=== PATIENT | female | born 1960 | race Two or more races ===

== ENCOUNTER 2025-03-13 11:52 | Emergency (ER) | payer MEDICARE, OTHER ==
[~2025-03-13] VITALS: Ht 160 cm; Wt 70.0 kg
[2025-03-13 11:59] VITALS: O2SAT 95
[2025-03-13 12:34] LABS: BASOPHILS % 0.4 % (0.0-2.0); EOSINOPHILS % 1.2 % (0.0-5.0); HEMATOCRIT. 34.7 % (36.0-48.0); HEMOGLOBIN. 11.7 g/dL (12.0-16.0); LYMPHOCYTES % 20.4 % (20.0-50.0); MEAN PLATELET VOLUME 7.4 fl (7.4-10.4); MONOCYTES % 6.1 % (2.0-8.0); NEUTROPHILS % 71.9 % (40.0-76.0); PLATELET 346 x1000/uL (130-400); RED BLOOD CELL COUNT 3.91 mill/uL (4.2-5.4); RED CELL DISTRIBUTION WIDTH 14.4 % (11.6-14.6)
[2025-03-13 12:49] LABS: CREATININE 0.9 mg/dL (0.6-1.0)
[2025-03-13 12:50] LABS: TROPONIN I HIGH SENSITIVITY < 4 ng/L (3.0-34); UREA NITROGEN BLOOD 14 mg/dL (9-23)
[2025-03-13 12:51] LABS: ASPARTATE AMINOTRANSFERASE 15 IU/L (<34)
[2025-03-13 12:52] LABS: BILIRUBIN DIRECT < 0.1 mg/dL (<=3.0); BILIRUBIN TOTAL 0.4 mg/dL (0.1-1.0); PROTEIN TOTAL 7.6 g/dL (6.0-8.3)
[2025-03-13 13:28] LABS: CLARITY URINE CLOUDY (CLEAR); COLOR URINE YELLOW (YELLOW); GLUCOSE URINE NEGATIVE (NEGATIVE); KETONES URINE TRACE (NEGATIVE); LEUKOCYTE ESTERASE URINE 2+ (NEGATIVE); NITRITE URINE NEGATIVE (NEGATIVE); OCCULT BLOOD URINE 1+ (NEGATIVE); PH URINE 5.5 (4.5-8.0); PROTEIN URINE 1+ (NEGATIVE); SPECIFIC GRAVITY URINE 1.027 (1.005-1.030); UROBILINOGEN URINE 1.0 E.U./dL (0.2-1.0)
[2025-03-13 14:05] LABS: BACTERIA URINE 1+; SQUAMOUS EPITHELIAL CELL URINE 1+ /lpf (RARE/1+); WBC URINE TNTC /hpf (0-2); YEAST URINE NONE SEEN
[2025-03-13] MEDS: SODIUM CHLORIDE 0.9% 1,000 ML IV ONE (14:37)
[2025-03-13] MEDS: CEFTRIAXONE 1GM/50ML 50 ML IV NR (14:44)
[2025-03-13] MEDS: KETOROLAC 15MG/ML VIAL IV NR (15:14)
[2025-03-13] MEDS ORDERED: CEPH500C2 MT (16:10)
[2025-03-13] MEDS ORDERED: DOCU-138 MT (16:10)
[2025-03-13 16:29] LABS: TROPONIN I HIGH SENSITIVITY < 4 ng/L (3.0-34)
[2025-03-13 16:56] VITALS: BP 120/69; PULSE 85; RESP 17; TEMP 36.7; O2SAT 95
== END 2025-03-13 16:58 | disposition home or self-care (01) ==
LOC: ER 11:52
DX: N39.0 Urinary tract infection, site not specified (principal); K59.00 Constipation, unspecified; F03.90 Unspecified dementia, unspecified severity, without behavioral disturbance, psychotic disturbance, mood disturbance, and anxiety; I10 Essential (primary) hypertension
CPT/HCPCS: 99285; 74176; 96365; 71045; 96375; 80076; 80048; 81003; 83690; 85025; 87086; 84484; 36415; 93005; J1885; J0696